=== PATIENT | female | born 1955 | race American Indian/Alaskan Native ===

== ENCOUNTER 2017-02-10 08:32 | Outpatient (CLI) | payer OTHER ==
--- NOTE | 2017-02-10 10:06 | Mammography Report ---
Bilateral mammogram: Compared to 06/05/15. CAD study utilized. Findings: Predominance adipose tissue bilaterally. Benign calcification and benign densities. No microcalcification. Focal new asymmetry posterior upper left breast seen on MLO view. Impression: Focal asymmetry upper posterior left breast. Recommend spot magnification and if necessary sonographic examination. BI-RADS CATEGORY: 0 = Needs additional imaging evaluation ACR BI-RADS MAMMOGRAPHIC CODES: 0 = Needs additional imaging evaluation; 1 = Negative; 2 = Benign; 3 = Probably benign; 4 = Suspicious; 5 = Malignant; 6 = Known biopsy-proven malignancy COMMENT: 1. Dense breast tissue, i.e., adenosis, fibrocystic changes, etc., may obscure an underlying neoplasm. 2. Approximately 10% of cancers are not detected with mammography. 3. A negative mammography report should not delay biopsy if a clinically suspicious mass is present. COMMENT: Patient follow-up letters are generated in [employer]. Impression: Benign findings. Annual followup recommended.
== END 2017-02-10 08:33 | disposition home or self-care (01) ==
LOC: MAMMO 08:32
PROVIDERS: ATTEND Family Medicine
DX: Z12.31 Encounter for screening mammogram for malignant neoplasm of breast (principal)
CPT/HCPCS: 77067; G0202